=== PATIENT | male | born 1930 | race Two or more races ===

== ENCOUNTER 2016-11-09 06:24 | Emergency (ER) | payer OTHER ==
[~2016-11-09] VITALS: Ht 182.9 cm; Wt 158.8 kg
[2016-11-09 06:26] VITALS: BP 0/0
[2016-11-09] MEDS ORDERED: SODIUM BICARBONATE 8.4% INJ 50ML SYRINGE IV ONE (10:30)
[2016-11-09] MEDS ORDERED: EPINEPHrine HCL 1 MG/10 ML SYRG IV ONE (10:30)
== END 2016-11-09 06:31 | disposition home or self-care (01) ==
LOC: EDBD 06:24 → ER 06:29
DX: I46.9 Cardiac arrest, cause unspecified (principal)
CPT/HCPCS: 92950; 99291; J0171